=== PATIENT | female | born 1995 | race Caucasian/White ===

== ENCOUNTER 2018-04-11 12:18 | Emergency (ER) | payer OTHER ==
[2018-04-11] MEDS ORDERED: Acetaminophen 500 MG TAB ONE (14:22)
[2018-04-11] MEDS ORDERED: Metoclopramide HCl 10 MG/2 ML VIAL ONE (14:22)
[2018-04-11] MEDS ORDERED: diphenhydrAMINE 12.5 MG/5 ML UDCUP ONE (14:22)
[2018-04-11] MEDS ORDERED: diphenhydrAMINE 50 MG/ML VIAL ONE (14:24)
--- NOTE | 2018-04-11 14:55 | CT ---
CT BRAIN WITHOUT CONTRAST: HISTORY: Headache. FINDINGS: No evidence of infarct, hemorrhage, midline shift, or abnormal extraaxial fluid collections are seen. The ventricular size is normal and the basilar cisterns are patent. The bony calvarium is intact. The visualized paranasal sinuses and mastoid air cells are well aerated. There is a focal density i n the right external auditory canal. IMPRESSION: 1. No CT evidence of acute intracranial process. 2. Direct visualization of the right external auditory canal is recommended to evaluate for foreign body. POS: [facility]
== END 2018-04-11 15:55 | disposition home or self-care (01) ==
LOC: ERS 12:18
DX: R51 Headache (principal)
CPT/HCPCS: 70450; 96365; 96375; J1200; J2765